=== PATIENT | female | born 1960 | race Caucasian/White ===

== ENCOUNTER 2021-04-11 07:16 | Emergency (ER) | payer OTHER, SELFPAY ==
[2021-04-11 07:18] VITALS: BP 104/70; PULSE 101; RESP 14; TEMP 36.1; O2SAT 97; BMI 23.1
--- NOTE | 2021-04-11 07:40 | CT_ITS ---
STUDY: CT ABDOMEN AND PELVIS WITH CONTRAST REASON FOR EXAM: Female, 60 years old. abdominal cramping RADIATION DOSAGE (If Supplied By Facility): CTDIvol = ( 12.03 ) mGy, DLP = ( 456.66 ) mGycm TECHNIQUE: Transaxial images were obtained from the dome of the diaphragm to the symphysis pubis without oral contrast. IV 100mL Isovue-370 was administered. Sagittal and coronal images were reconstructed. Individualized dose optimization techniques were used for this CT. COMPARISON: None. FINDINGS: The visualized lung bases are unremarkable. The visualized portions of the heart are within normal limits. Normal liver. Normal gallbladder and extrahepatic biliary system. Normal spleen. Normal pancreas. Normal bilateral adrenal glands. Bilateral parapelvic renal cysts. No hydronephrosis. Normal visualized stomach. Normal small intestine. Long segment wall thickening involving the mid transverse colon extending into the proximal descending colon (image 41 series 601) with very little adjacent pericolonic stranding. Colonic fecal residue of the proximal right colon. The appendix is visualized and appears normal. Normal abdominal aorta. Origins of the mesenteric arteries are patent. Normal inferior vena cava. Normal retroperitoneum. Normal variant circumaortic left renal vein. Normal urinary bladder. Normal abdominal wall. Degenerative changes of the lumbar spine. CT/Abdomen/Pelvis W IV Cont ONLY IMPRESSION: 1. Long segment transverse (proximal descending) colon wall thickening with differential diagnosis including infectious colitis, inflammatory bowel disease, ischemic colitis or neoplasm. Electronically Signed: Alvin Leo MD ([place]) at 8:48 EDT , Service support ,
--- NOTE | 2021-04-11 07:43 | ED.VIS.GI ---
HPI HPI - GI History of Present Illness Chief Complaint: GI Bleed Narrative Narrative: 50-year-old female presenting with abdominal bloating and diarrhea. She states that she started to see blood in her stool this morning with clots in it at about 330. She states that she has had some diarrhea about every 30 minutes with blood in it.. She states she does not have xavier localized pain. She is not had a fever. She has nausea without vomiting. Patient states that prior to the onset last night she had a headache which she describes as a migraine and states that this has improved. She denies any change in her diet. She denies raw or undercooked food. Patient states that static travel. No recent antibiotics. She has no history of GI bleed and is not on blood thinners. No history of diverticulitis. PFSH PFSH Home Medications calcium carbonate-vitamin D3 [Caltrate-600 With Vit D Tab] 1 tab PO DAILY@0800 05/04/14 [History Last Taken Unknown] ketorolac 10 mg PO Q6H PRN #20 tablet 05/04/14 [Rx Last Taken Unknown] multivitamin with folic acid [Thera] 1 tab PO DAILY 05/04/14 [History Last Taken Unknown] ondansetron 4 mg PO Q8H PRN PRN #10 tab 05/04/14 [Rx Last Taken Unknown] oregano oil 1,500 mg PO DAILY 05/04/14 [History Last Taken Unknown] oxycodone-acetaminophen 1 - 2 tab PO Q4H PRN PRN #20 tab 05/04/14 [Rx Last Taken Unknown] Allergy/AdvReac Type Severity Reaction Status Date / Time adhesive tape AdvReac Other Verified 04/11/21 07:17 morphine AdvReac Vomiting Verified 05/04/14 17:52 Social History Smoking Status: Never smoker ROS ROS ED Constitutional Constitutional ED: Denies chills or fever(s) ENT ENT ED: Denies rhinorrhea or sore throat Cardiovascular Cardiovascular: Denies palpitations Respiratory/Chest Respiratory/Chest: Denies cough or dyspnea Gastrointestinal Gastrointestinal: Reports diarrhea, nausea and other Details: Hematochezia with abdominal bloating and cramping ; Denies vomiting Genitourinary Genitourinary ED: Denies dysuria or hematuria Musculoskeletal Musculoskeletal: Denies back pain, myalgias or neck pain Integumentary Denies Abrasions or rash Neurologic Neurologic: Reports headache(s); Denies paresthesias EXAM Physical Exam Const Vital Signs: 04/11/21 07:18 Temperature 97 F L Temperature Source Temporal Pulse Rate 101 H Respiratory Rate 14 Blood Pressure 104/70 Blood Pressure Mean 81 Pulse Ox 97 Oxygen Delivery Method Room Air Positive well nourished General Appearance ED: NAD; Negative for pallor HEENT Reports moist mucous membranes normocephalic and atraumatic Eyes PERRL and EOMs intact bilaterally General Eye ED: Negative for pale conjunctiva or scleral icterus Resp normal respiratory effort and clear to auscultation bilaterally Cardio regular rate and regular rhythm GI non-distended Palpation: soft; Negative for guarding Rectal Exam: visual inspection normal and normal sphincter tone; Negative for internal hemorrhoid(s), external hemorrhoid(s), prolapse, fecal impaction, anal fissure or tenderness Extremity General Extremety ED: Negative for edema or tenderness General Extremity: Negative for edema Neuro CN's II-XII intact bilaterally and no sensory deficits noted Sensorium / Orientation: alert and oriented to person Motor Exam: strength 5/5 throughout Psych mental status grossly normal and thought process normal Skin General Skin Exam: Negative for jaundice or pallor MDM MDM MDM Narrative Medical decision making narrative: Patient presented with blood in stool and clots as well. She is able to show me a picture of a small clot in the toilet bowl with some blood surrounding it. The toilet bowl was not full of blood. She has not had any episodes of this while in the emergency room. CBC shows no leukocytosis. Hemoglobin is elevated at 15.0 over her previous which is 14.0 however this was in 2013. Renal function electrolytes are normal. LFTs are normal. Lactic acid 1.3 and therefore normal. Urinalysis is negative for infection. Given the patient's abdominal discomfort I did obtain a CT of the abdomen pelvis which shows a long segment transverse (proximal descending) colon wall thickening with differential diagnosis including infectious colitis, inflammatory bowel disease, ischemic colitis or neoplasm. Patient states he had a colonoscopy in August which was normal. I doubt that this is neoplasm. Is likely colitis. I did send off stool studies and patient has no history of C. difficile colitis nor she been on any recent antibiotics so this is a low likelihood. Patient does not have an elevated white blood cell count either which makes it less likely to be C. difficile. Given that her lactic acid is normal I do not believe this is ischemic colitis. I discussed the case with Dr. Rivera who was happy to see her in follow-up and agreed she did not need to be admitted but did need outpatient follow-up and he is amenable to seeing her. This was discussed with the patient and she feels comfortable going home and she will monitor for worsening bleeding, development of fever, nausea or vomiting, worsening abdominal pain and if she has these she will return to the ER. Otherwise she will make follow-up with Dr. Rviera. Impression: 1. Diarrhea 2. GI bleed stable 3. Colitis Lab Data Attestation: I reviewed the patient's lab results. Labs: Laboratory Results - last 24 hr 04/11/21 04/11/21 04/11/21 07:37 07:37 09:00 WBC 9.7 RBC 4.54 Hgb 15.0 Hct 44.3 MCV 97.6 MCH 33.0 H MCHC 33.9 RDW Std Deviation 43.1 RDW Coeff of Madeline 11.9 Plt Count 301 MPV 9.7 Immature Gran % (Auto) 0.400 Neut % (Auto) 69.6 Lymph % (Auto) 22.1 Mason % (Auto) 4.8 Eos % (Auto) 2.4 Baso % (Auto) 0.7 Absolute Neuts (auto) 6.8 Absolute Lymphs (auto) 2.15 Nucleated RBC % 0 Sodium 142 Potassium 4.0 Chloride 105 Carbon Dioxide 28.0 Anion Gap 9 BUN 13 Creatinine 0.83 Estim Creat Clear Calc 55.58 Est GFR (MDRD) Af Amer 89 Est GFR (MDRD) Non-Af 74 BUN/Creatinine Ratio 15.6 Glucose 107 H Lactic Acid 1.3 Calcium 9.6 Total Bilirubin 0.60 AST 23 ALT 27 Alkaline Phosphatase 55 Total Protein 7.9 Albumin 3.9 Globulin 4.0 Albumin/Globulin Ratio 1.0 Lipase 66 L Urine Color Urine Clarity Urine pH Ur Specific [place] Urine Protein Urine Glucose (UA) Urine Ketones Urine Occult Blood Urine Nitrite Urine Bilirubin Urine Urobilinogen Ur Leukocyte Esterase Urine RBC Urine WBC Ur Squamous Epith Cells Urine Bacteria Urine Mucus 04/11/21 09:10 WBC RBC Hgb Hct MCV MCH MCHC RDW Std Deviation RDW Coeff of [place] Plt Count MPV Immature Gran % (Auto) Neut % (Auto) Lymph % (Auto) Mason % (Auto) Eos % (Auto) Baso % (Auto) Absolute Neuts (auto) Absolute Lymphs (auto) Nucleated RBC % Sodium Potassium Chloride Carbon Dioxide Anion Gap BUN Creatinine Estim Creat Clear Calc Est GFR (MDRD) Af Amer Est GFR (MDRD) Non-Af BUN/Creatinine Ratio Glucose Lactic Acid Calcium Total Bilirubin AST ALT Alkaline Phosphatase Total Protein Albumin Globulin Albumin/Globulin Ratio Lipase Urine Color Yellow Urine Clarity Sl. Cloudy Urine pH 7.0 Ur Specific [place] 1.010 Urine Protein Negative Urine Glucose (UA) Normal Urine Ketones Negative Urine Occult Blood Negative Urine Nitrite Negative Urine Bilirubin Negative Urine Urobilinogen Normal Ur Leukocyte Esterase Negative Urine RBC 0 SEEN Urine WBC 0 SEEN Ur Squamous Epith Cells 0 SEEN Urine Bacteria 0 SEEN Urine Mucus 0 SEEN Radiography Diagnostic Testing: Radiology Impression Abdomen/Pelvis CT 04/11/21 07:40 IMPRESSION: 1. Long segment transverse (proximal descending) colon wall thickening with differential diagnosis including infectious colitis, inflammatory bowel disease, ischemic colitis or neoplasm. Electronically Signed: Alvin Leo MD ([place]) at 8:48 EDT , Service support , Discharge Plan Triage Chief Complaint: GI Bleed ED Provider: Angus Lucio Dx/Rx/DC Orders Instructions: ED Diarrhea, Unknown Cause, ED Lower GI Bleeding (Stable) Prescriptions: No Action oregano oil 1,500 MG capsule 1,500 mg PO DAILY RF: 0 multivitamin with folic acid [Thera] 1 TABLET tablet 1 tab PO DAILY RF: 0 calcium carbonate-vitamin D3 [Caltrate with Vitamin D3] 1 TAB tablet 1 tab PO DAILY@0800 RF: 0 oxycodone-acetaminophen 1 TABLET tablet 1 - 2 tab PO Q4H PRN PRN (Reason: Pain) Qty: 20 RF: 0 ondansetron 4 MG tablet 4 mg PO Q8H PRN PRN (Reason: Nausea) Qty: 10 RF: 0 ketorolac 10 MG tablet 10 mg PO Q6H PRN (Reason: Pain) Qty: 20 RF: 0 Primary Care Provider: Mamadou Newman Referrals: Mamadou Newman DO [Primary Care Provider] - Miguel,DO Saqib [STAFF PHYSICIAN] - As soon as possible Disposition Disposition: Home, Self Care
[2021-04-11 07:51] LABS: Absolute Lymphocyte Count 2.15 X10^3/uL (0.83-4.51); Absolute Neutrophil Count 6.8 X10^3/uL (2.0-7.7); Basophil# 0.07 X10^3/uL; Basophil% 0.7 % (0-1); Eosinophil# 0.23 X10^3/uL; Eosinophils% 2.4 % (0-5); Hematocrit 44.3 % (37-47); Lymphocyte # 2.15 X10^3/ul (0.83-4.51); Lymphocyte % 22.1 % (19-41); Mean Corp Hgb Conc 33.9 g/dL (32-36); Mean Corpuscular Volume 97.6 fL (81-99); Mean Platelet Vol. 9.7 fl (6.2-12.0); Monocyte# 0.47 X10^3/uL; Monocyte% 4.8 % (0-10); NRBC Flagged by Analyzer 0 % (0-5); Neutrophil # 6.77 X10^3/uL (2.7-7.7); Neutrophil % 69.6 % (47-70); Platelet Count 301 K/mm3 (150-450); RBC Distribution Width CV 11.9 % (11.6-14.6); RBC Distribution Width SD 43.1 fl (35.1-43.9); Red Blood Count 4.54 M/mm3 (4.2-5.4); White Blood Count 9.7 K/mm3 (4.4-11.0)
[2021-04-11 08:06] LABS: AST(SGOT) 23 U/L (15-37); Alanine Aminotransfer ALT/SGPT 27 U/L (13-56); Albumin, Serum 3.9 g/dL (3.2-5.0); Alkaline Phosphatase 55 U/L (45-117); Anion Gap 9 (5-15); BUN 13 mg/dL (7-18); BUN/Creat Ratio 15.6 RATIO (10-20); Calcium,Total 9.6 mg/dL (8.5-10.1); Chloride 105 mmol/L (98-107); Creatinine, Serum 0.83 mg/dL (0.55-1.02); EST Glomerular Filtration Rate 74 mL/min (>60); Est Glom Filt Rate - Afr Amer 89 mL/min (>60); Estimated Creatinine Clearance 55.58 ml/min; Glucose 107 mg/dL (74-106); Lipase 66 U/L (73-393); Protein, Total 7.9 g/dL (6.4-8.2); Sodium Level 142 mmol/L (136-145)
[2021-04-11 09:15] LABS: Bacteria 0 SEEN /hpf (None Seen); Mucous, Urine 0 SEEN /hpf (<or=2+); Red Blood Cells-Urine 0 SEEN /hpf (0-5); Squamous Epithelial Cells - UA 0 SEEN /hpf (5-10); White Blood Cells 0 SEEN /hpf (0-5)
[2021-04-11 09:21] LABS: Color, Urine Yellow (Yellow); Glucose, Dipstick Normal (Normal); Ketone-Dipstick Negative (Negative); Leukocyte Esterase-Dipstick Negative /ul (Negative); Nitrite-Dipstick Negative (Negative); Occult Blood-Urine Negative /ul (Negative); Protein-Dipstick Negative (Negative); Urine Bilirubin Dipstick Negative (Negative); Urine Clarity Sl. Cloudy (Clear); Urine Urobilinogen Normal (Normal)
[2021-04-11 09:28] LABS: Lactic Acid 1.3 mmol/L (0.4-1.9)
[2021-04-11 10:24] VITALS: BP 108/74; PULSE 62; RESP 15; O2SAT 97
== END 2021-04-11 10:25 | disposition home or self-care (01) ==
PROVIDERS: Emergency Provider Student in an Organized Health Care Education/Training Program; PCP Student in an Organized Health Care Education/Training Program
DX: K52.9 Noninfective gastroenteritis and colitis, unspecified (principal)
CPT/HCPCS: 74177; 80053; 81001; 82274; 83605; 83690; 85025; 87493; 99283; Q9967; A4216